=== PATIENT | male | born 1955 | race Caucasian/White ===

== ENCOUNTER 2023-04-27 09:12 | Outpatient (CLI) | payer MEDICARE, OTHER, SELFPAY ==
--- NOTE | 2023-04-29 17:01 | WPDSLEEPSTUD ---
Sleep Study Date of Study: 04/27/23 Ordering Provider: LIZ Rivera Interpreting Physician: Nancy Tim MD Sleep Study Type: Polysomnogram Height: 1.73 m Weight: 99.79 kg Body Mass Index: 33.4 Neck Circumference (inches): 18 [place]: 11 Reason for Sleep Study Difficulty falling asleep and staying asleep, waking up during the night, daytime hypersomnolence Sleep History Real Dale is a 67-year-old man who is retired from [employer]. He is referred from his ENT for problems with his sleep. He had a heart attack 02/08/2023 with worsening of his sleep problems and shortness of breath since. He occasionally awakens from sleep feeling short of breath. He rarely awakens at night with heartburn, belching or coughing. He occasionally snores, rarely snores loudly enough that others complain. He occasionally has difficulty sleeping with a cold, he is awake up gasping for breath at night and occasionally has breathing problems at night reported to him by others. He does not sweat excessively at night. He rarely notices his heart pounding or beating irregularly at night. He rarely falls asleep during the day, rarely falls asleep involuntarily, never falls asleep while driving. He does not have loss of muscle tone with strong emotion. He rarely has daytime difficulties due to excessive sleepiness, however he has excessive sleepiness every day. He does not feel paralyzed on waking or falling asleep. He occasionally has vivid dreamlike scenes upon awakening or falling asleep. Never feels afraid to go to sleep. He rarely has nightmares. He constantly remembers his dreams. He constantly has racing thoughts especially before trying to fall asleep. He rarely feels sad or depressed. He frequently has anxiety and frequently worries about things. He does not have muscular tension. He rarely notices parts of his body jerking. He rarely kicks at night. He frequently has crawling and aching feelings in his legs. He frequently has leg pain during the night. He has had diabetes for years with neuropathy. He does not have morning jaw pain, does not grind his teeth during sleep. He rarely is bothered by pain during the day, rarely awakened by pain at night. He rarely wakes up feeling stiff in the morning with sore achy muscles or pain in the neck and spine. He has fatigue, memory problems, concentration difficulties and insomnia. He does not have problems with libido. His normal bedtime is between 9:00 p.m. and 10:00 p.m., sometimes taking hours to fall asleep. He wakes up multiple times during the night. He changes the locations for sleeping from the bed to the cough then the recliner. his normal wake time is between 7:00 a.m. and 8:00 a.m.. He keeps the same schedule on weekends. On a good night, he estimates getting only 3 to 4 hours of sleep. He takes naps in the afternoon or evening. A short nap lasting 10-15 minutes is not refreshing. He is usually drowsy for 3 hours after waking. He feels better in the afternoon compared to other times of day. Habits: tobacco, quit 5 years ago. Caffeine, 1-2 cups per week. Alcohol: None. Recreational substances: None. [facility] Past Medical History Medical History (Updated 04/29/23 @ 20:57 by Nancy Tim MD) CAD (coronary artery disease) Chronic anticoagulation Diabetes mellitus with neuropathy History of myocardial infarction Hyperlipidemia Hypertension Hypothyroidism (acquired) Family History Family History (Updated 02/07/16 @ 23:19 by DOCTOR UNKNOWN) Sibling Family history of thyroid disease Mother Family history of cataracts Family history of diabetes mellitus in first degree relative Family history of congestive heart failure Father Family history of malignant neoplasm of kidney Social History Social History (Updated 04/29/23 @ 17:38 by Nancy Tim MD) Smoking status: Former smoker Alcohol intake: never Medications Medications: ti
[2023-04-29 20:59] VITALS: BMI 33.4
== END 2023-04-28 05:31 | disposition home or self-care (01) ==
DX: G47.33 Obstructive sleep apnea (adult) (pediatric) (principal); G47.31 Primary central sleep apnea; G25.81 Restless legs syndrome
CPT/HCPCS: 95810

== ENCOUNTER 2023-06-04 07:37 | Outpatient (CLI) | payer MEDICARE, OTHER, SELFPAY ==
[2023-06-30 07:28] VITALS: BMI 34.9
--- NOTE | 2023-06-30 07:28 | WPDSLEEPSTUD ---
Sleep Study Date of Study: 06/04/23 Ordering Provider: Clifford Camarillo Interpreting Physician: Richa Lynch DO Sleep Study Type: CPAP Titration Height: 1.73 m Weight: 104.326 kg Body Mass Index: 34.9 Neck Circumference (inches): 18 [place]: 11 Reason for Sleep Study The patient had a basic nocturnal polysomnogram on 04/27/2023 that showed severe obstructive sleep apnea, the apnea-hypopnea index is 52.9 with moderately severe central sleep apnea, central apnea-hypopnea index is 24.? The patient desaturated to 84%. He had mild to moderate snoring.? [employer] was present. Sleep History Real Dale is a 67-year-old man who is retired from [employer]. He is referred from his ENT for problems with his sleep. He had a heart attack 02/08/2023 with worsening of his sleep problems and shortness of breath since. He occasionally awakens from sleep feeling short of breath.? He rarely awakens at night with heartburn, belching or coughing.? He occasionally snores, rarely snores loudly enough that others complain.? He occasionally has difficulty sleeping with a cold, he is awake up gasping for breath at night and occasionally has breathing problems at night reported to him by others.? He does not sweat excessively at night.? He rarely notices his heart pounding or beating irregularly at night.? He rarely falls asleep during the day, rarely falls asleep involuntarily, never falls asleep while driving.? He does not have loss of muscle tone with strong emotion.? He rarely has daytime difficulties due to excessive sleepiness, however he has excessive sleepiness every day.? He does not feel paralyzed on waking or falling asleep.? He occasionally has vivid dreamlike scenes upon awakening or falling asleep.? Never feels afraid to go to sleep.? He rarely has nightmares.? He constantly remembers his dreams.? He constantly has racing thoughts especially before trying to fall asleep.? He rarely feels sad or depressed.? He frequently has anxiety and frequently worries about things.? He does not have muscular tension.? He rarely notices parts of his body jerking.? He rarely kicks at night.? He?frequently has crawling?and?aching?feelings in his legs.? He frequently has leg pain during the night. He has had diabetes for years with neuropathy. He does not have morning jaw pain, does not grind his teeth during sleep.? He rarely is bothered by pain during the day, rarely awakened by pain at night.? He rarely wakes up feeling stiff in the morning with sore achy muscles or pain in the neck and spine.? He has fatigue, memory problems, concentration difficulties and insomnia.? He does not have problems with libido. His normal bedtime is between 9:00 p.m. and 10:00 p.m., sometimes taking hours to fall asleep.? He wakes up multiple times during the night.? He changes the locations for sleeping from the bed to the cough then the recliner. ? his normal wake time is between 7:00 a.m. and 8:00 a.m..? He keeps the same schedule on weekends.? On a good night, he estimates getting only 3 to 4 hours of sleep.? He takes naps in the afternoon or evening.? A short nap lasting 10-15 minutes is not refreshing.? He is usually drowsy for 3 hours after waking.? He feels better in the afternoon compared to other times of day. Habits:? tobacco, quit 5 years ago.? Caffeine, 1-2 cups per week.? Alcohol:? None.? Recreational substances:? None. [facility] Past Medical History Medical History CAD (coronary artery disease) Chronic anticoagulation Diabetes mellitus with neuropathy History of myocardial infarction Hyperlipidemia Hypertension Hypothyroidism (acquired) Family History Family History Sibling Family history of thyroid disease Mother Family history of cataracts Family history of diabetes mellitus in first degree relative Family history of congestive heart failure Father Family history of
== END 2023-06-05 05:56 | disposition home or self-care (01) ==
LOC: ANHCSM 07:38
DX: G47.33 Obstructive sleep apnea (adult) (pediatric) (principal); G47.31 Primary central sleep apnea; G25.81 Restless legs syndrome
CPT/HCPCS: 95811